=== PATIENT | male | born 1995 | race Caucasian/White ===

== ENCOUNTER 2025-02-02 02:10 | Emergency (ER) | payer MEDICAID ==
[~2025-02-02] VITALS: Ht 172.7 cm; Wt 69.0 kg
[2025-02-02 02:16] VITALS: BP 133/80; PULSE 88; RESP 16; TEMP 36.7; O2SAT 99
== END 2025-02-02 03:54 | disposition left against medical advice (07) ==
LOC: ER 02:10
DX: R10.9 Unspecified abdominal pain (principal); Z53.21 Procedure and treatment not carried out due to patient leaving prior to being seen by health care provider